=== PATIENT | male | born 1970 | race Caucasian/White ===

== ENCOUNTER 2016-12-25 22:27 | Inpatient (IN) | payer BC ==
--- NOTE | ~2016-12-25 | HP ---
Unit #: [id number] #: [id number] Patient: EWA MCKEON [id number] [address] [place], [place] [address] [id number] MR#: [id number] NAME: EWA MCKEON ROOM: 313 Age: 46 Sex: M Admission Date: 12/25/2016 : 1970 Attending Physician: Arielle Dejesus M.D. Primary Care Physician: No Primary Care Physician HISTORY AND PHYSICAL CHIEF COMPLAINT Nausea, vomiting, diarrhea with abdominal pain and hyponatremia. HISTORY This pleasant 46-year-old male with peptic ulcer disease, daily alcohol use, is admitted for hyponatremia. The patient generally drinks four to five beers on a daily basis. However, for a week he also drank bourbon. Stopped drinking bourbon about five days ago. Three days ago he developed generalized abdominal pain, particularly in the epigastric region associated with nonbloody nausea, vomiting and diarrhea. He felt a little bit disoriented, with very little p.o. intake. He presented to this emergency department this evening, where he was treated with Protonix, IV Reglan and a bolus of saline. Currently is feeling much improved. However, his sodium is 111, down from a sodium of 132 in September. Currently on examination, the patient has mild epigastric tenderness only with a soft abdomen. Acute abdominal series was performed, I do not see free air, I am awaiting for the radiologist to read the films. PAST MEDICAL HISTORY 1. Peptic ulcer disease requiring exploratory lap for perforation. 2. Recurrent ventral hernias. Patient last underwent a laparoscopic repair by Dr. Dickson on 10/12/2016. Lysis of adhesions were also performed. 3. Right hand surgery. ALLERGIES Dilaudid causing anger and shellfish. HOME MEDICATIONS Protonix daily. FAMILY HISTORY Melanoma and hypertension. SOCIAL HISTORY The patient lives with his and daughter. He smokes one pack per day of tobacco. He drinks four to five beers on a daily basis, but denies withdrawal symptoms. REVIEW OF SYSTEMS Notable for nausea, vomiting, diarrhea, abdominal pain, peptic ulcer disease, above mentioned surgeries, tobacco abuse, daily alcohol use. Unit #: [id number] #: [id number] Patient: EWA MCKEON Mild disorientation. All other systems were reviewed and are otherwise negative. PHYSICAL EXAMINATION GENERAL APPEARANCE: Pleasant 46-year-old male, currently in no acute distress. VITAL SIGNS: Temperature 97.8, pulse 93, respirations 22, blood pressure 169/91. O2 saturation is 100% on room air. HEENT: Eyes PERRLA. Extraocular muscles are intact. Pharynx is benign. NECK: Supple without adenopathy or thyromegaly. CHEST: Clear with mild expiratory wheeze. CARDIAC: Normal S1 and S2 without S3, S4 or murmur. ABDOMEN: Bowel sounds are present. (1) scar is noted. The patient has mild tenderness in the epigastric region without rebound or guarding. No hepatosplenomegaly or masses. EXTREMITIES: Without clubbing, cyanosis or edema. Pedal pulses are present. NEUROLOGIC: The patient is awake, alert, oriented. Cranial nerves are intact. Equal strength throughout. DIAGNOSTIC STUDIES LABORATORY: Admission labs - hematocrit is 41.5, normal white count and platelet count. SMA-12 - sodium 111, down from 132 in September. Chloride 80, CO2 19, AST 85, ALT 69, higher than previous values in September. Alk. phos. 95. Lipase is normal. Urinalysis - specific gravity 1.012, 2+ ketones. Acute abdominal series is pending. I do not see a perforation. Radiologist will be reading it shortly. ASSESSMENT 1. Nausea, vomiting, diarrhea with generalized abdominal pain, now improved: Likely, many of the patient's GI symptoms are related to his recent alcohol use, rule out gastroenteritis. 2. Profound hyponatremia, likely multifactorial secondary to hypovolemic hyponatremia and beer potomania. 3. History of peptic ulcer disease requiring exploratory lap and repair for perforated ulcer. 4. Status post multiple ventral hernia repairs, last laparoscopic repair was performed 10/12/[address] Dickson. Lysis of adhesions were also done. 5. Tobacco abuse. 6. Daily alcohol use. PLANS 1. Gentle normal saline and monitor sodium carefully. 2. Obtain urine sodium and TSH. 3. Await acute abdominal series reading by radiologist. 4. Vitamins and benzos. 5. SCDs for DVT prophylaxis. 6. Proton pump inhibitor and p.r.n. Zofran. 7. NicoDerm patch. Unit #: [id number] #: [id number] Patient: EWA MCKEON Dictated by Arielle Dejesus M.D. AML/df TD: 12/26/2016 05:01 JOB #: [id number] CC: Martha Valdovinos Aprn [facility] HISTORY AND PHYSICAL Page 1 of 1 X Arielle Dejesus MD X HISTORY AND PHYSICAL
--- NOTE | ~2016-12-25 | CR2 ---
[facility] A Service of [facility] & [facility] RADIOLOGY TEXT RESULTS PATIENT: EWA MCKEON LOCATION: A 313-01 : [birth year] UNIT #: [id number] AGE: [address]: Blanca Lara MD SEX: M ORDER DR: [id number] [facility] [address]. [place], [place] [address] [id number] MR#: [id number] Acc #: [id number] NAME: EWA MCKEON : 1970 SEX: M STUDY DATE/TIME: 12/25/2016 21:51 UNIT: [id number] PCU ROOM: [facility] STUDY DESCRIPTION: CR Abdomen Acute Series Attending Physician: Arielle Dejesus M.D. Ordering Physician: Easton Ruffin M.D. Primary Care Physician: Primary Care Physician No MEDICAL IMAGING REPORT This report is preliminary unless electronic signature is present EXAM Acute abdomen series, 3 views, 12/25/2016 HISTORY Abdomen pain, nausea, vomiting and diarrhea for 3 days. FINDINGS Three views of the chest and abdomen demonstrate normal bowel gas pattern with no evidence of bowel obstruction or free air. There is a large amount of fecal matter in the colon. There is evidence of prior ventral hernia repair. Single view of the chest is normal. IMPRESSION 1. Normal bowel gas pattern. No evidence of bowel obstruction or free air. 2. Evidence of prior ventral hernia repair. 3. No active pulmonary disease. Dictated by... Jose Roberto Catalan M.D. THIS IS AN ELECTRONICALLY VERIFIED REPORT Jose Roberto Catalan M.D. at 12/26/2016 2:16 PM KRT/psc TD: 12/26/2016 01:33 JOB #: [id number] MEDICAL IMAGING REPORT Page 1 of 1 COPY
--- NOTE | ~2016-12-25 | CO ---
Unit #: [id number] #: [id number] Patient: EWA RODRIGUEZ [id number] [address] [address] [id number] [place] MR#: [id number] NAME: EWA RODRIGUEZ ROOM: 313 Age: 46 Sex: M Admission Date: 12/25/2016 : 1970 Attending Physician: Blanca Lara M.D. Primary Care Physician: No Primary Care Physician CONSULTATION REPORT REASON FOR CONSULTATION Hyponatremia. HISTORY OF PRESENT ILLNESS Thank you very much for asking me to see this patient in consultation. Mr. Ewa Rodriguez is a 45-year-old male who has a history of ETOH abuse. He drinks normally about five to six beers a day over the last week or two. He has also been drinking a lot of bourbon with that, as well as increased beer intake. He started having abdominal discomfort about three days ago and subsequently nausea and vomiting. He presented to the hospital here with a sodium yesterday evening at 8 p.m. of 111. It was repeated at 1:15 a.m. of 115, at 7:40 a.m. this morning at 1:22 and at noon it was 125. I was consulted a couple of hours ago to see this patient for the hyponatremia. The patient states he has never had any problems with his sodium that he knows of. He, again, drinks intermittently for many, many years. He states he has not really eaten a lot in the last few weeks due to his alcohol intake and poor appetite. He denies drinking any non-ethanol based alcohols. He denies any IV drugs or other illegal drugs. PAST MEDICAL HISTORY History of peptic ulcer disease. PAST SURGICAL HISTORY History of hernia repairs in the past. SOCIAL HISTORY The patient is and lives with his . Again, positive alcohol abuse. Positive smoker. FAMILY HISTORY Negative for any sodium problems. ALLERGIES Dilaudid. HOME MEDICATIONS Protonix. CURRENT MEDICATIONS 1. Protonix. 2. Librium. 3. Thiamine. 4. Multivitamin. Unit #: [id number] #: [id number] Patient: EWA RODRIGUEZ 5. He was on normal saline and that was stopped several hours ago. REVIEW OF SYSTEMS As mentioned in history of present illness. He denies any fevers, chills, visual problems, sinus problems, cough. No hemoptysis. No neck pain or neck stiffness. No chest pain, chest heaviness or palpitations. He denies any lower extremity swelling. No recent skin rashes. No seizures or strokes. He does say that he still takes occasional ibuprofen about once a week for hip pain. PHYSICAL EXAMINATION GENERAL: He is alert now and oriented. VITALS: T-max is 98.7, pulse 84-94, blood pressure 135-169/80s to 90s. HEENT: Normocephalic, atraumatic. His pupils are equal, round and reactive to light. Extraocular muscles are intact. Hearing appears to be normal. Mouth is clear. No erythema. No exudate. NECK: Supple. No jugular venous distension. No adenopathy. LUNGS: Clear bilaterally. No wheezes, rhonchi or rales. HEART: He has a regular rate and rhythm without a rub. No S3 or S4. ABDOMEN: Bowel sounds are positive. Nontender this afternoon. No rebound or guarding. No masses are felt. No hepatomegaly noted. EXTREMITIES: He has no significant lower extremity swelling. His pulses are intact, upper and lower extremities. No joint pain or joint swelling. SKIN: No acute rashes. : Deferred. DIAGNOSTIC STUDIES IMAGING: Acute abdominal series was negative. LABORATORY: Previous sodium as mentioned above. His last BMP showed a sodium of 125, potassium 4.3, chloride 92, bicarb 20, BUN 5, creatinine 0.5 and glucose 70. Urinalysis showed specific gravity of 1.012, no RBCs, no WBCs, no protein, but he did have positive ketones in his urine. His TSH was 2.89. His hemoglobin and platelet counts are normal. His albumin was 4.8. He did have increased liver function test mildly. He had a normal amylase and lipase. ASSESSMENT/PLAN 1. Hyponatremia. This is a gentleman who had a low sodium upon presentation. Certainly appears to be either euvolemic versus hypovolemic hyponatremia. He does not appear to have any evidence of ascites, congestive heart failure or liver failure at this point in time. Certainly, I think he probably has a combination of volume depletion with his nausea, vomiting and diarrhea upon presentation. He also probably has some component of decreased (1) intake. His BUN and creatinine are fairly low, although his albumin is actually not nearly as low as I would expect, although he could continue to worsen with hydration. TSH is normal. Will check a cortisol level in the morning. Will check urine osmolality. I would like to check STAT BMPs every four hours. His sodium in serum has improved a little faster than what I would like. I am going to go ahead and started him on D5W for now. Check a STAT BMP now and again every four hours and adjust the IV fluids depending on that level. 2. ETOH abuse. Will check a magnesium and phosphorus as well. Certainly agree with current treatment for possible withdrawal. 3. Acidosis. I do not have a current ABG, but I would assume the patient has a metabolic acidosis with anion gap of only 13, which is slightly elevated, but probably related to starvation ketoacidosis. Unit #: [id number] #: [id number] Patient: EWA RODRIGUEZ His urine was positive for ketones. Certainly, if his acidosis does not improve then we can consider further workup of this. I doubt if he has any other alcohol ingestion as the etiology of his acidosis. Dictated byJenifer Chino M.D. ERNST/ginna TD: 12/27/2016 09:37 JOB #: [id number] CONSULTATION REPORT Page 1 of 1 X Kriss Chino MD X CONSULTATION REPORT
[2016-12-25 20:08] LABS: BASOPHIL# 0.1 X10e3 (0-0.3); BASOPHIL% 0.8 % (0-2.5); EOSINOPHIL# 0.6 X10e3 (0-0.7); EOSINOPHIL% 7.9 % (0.0-7.0); HEMATOCRIT 41.5 % (38.0-50.0); HEMOGLOBIN 14.4 gm/dL (13.0-16.0); LYMPHOCYTE# 2.6 X10e3 (1.0-3.5); LYMPHOCYTE% 36.4 % (17.0-45.0); MEAN CELL VOLUME 87.2 FL (83-96); MEAN CORPUSCULAR HEMOGLOBIN 30.2 PG (28-34); MEAN CORPUSCULAR HGB CONC 34.6 g/dL (30-36); MEAN PLATELET VOLUME 7.5 FL (6.5-11.5); MONOCYTE# 0.4 X10e3 (0-1.0); MONOCYTE% 6.2 % (3.0-12.0); NEUTROPHIL# 3.5 X10e3 (1.5-7.1); NEUTROPHIL% 48.7 % (40-75); PLATELET COUNT 228 X10e3 (140-420); RED BLOOD COUNT 4.76 X10e (3.90-5.60); RED CELL DISTRIBUTION WIDTH 13.3 % (11.0-15.5); WHITE BLOOD COUNT 7.2 X10e3 (4.0-10.5)
[2016-12-25 20:11] LABS: DIFF IND NO
[2016-12-25 20:31] LABS: ALBUMIN SERUM 4.8 g/dL (3.5-5.0); BILIRUBIN, DIRECT 0.2 mg/dL (0.0-0.2); BILIRUBIN,INDIRECT 0.7 mg/dL (0.0-0.9); BILIRUBIN,TOTAL 0.9 mg/dL (0.2-2.0); BUN/CREATININE RATIO 16.66; CALCIUM SERUM 8.4 mg/dL (8.4-10.2); CREATININE SERUM 0.3 mg/dL (0.6-1.4); GLOM FILT RATE Estimated 159.3 mL/min (>60); POTASSIUM 3.5 mmol/L (3.5-5.1); PROTEIN TOTAL SERUM 7.1 g/dL (6.0-8.3)
[2016-12-25 21:05] LABS: URINE SOURCE CLEAN CATCH
[2016-12-25 21:12] LABS: URINE APPEARANCE CLEAR; URINE BILIRUBIN NEG (NEG); URINE BLOOD NEG (NEG); URINE COLOR YELLOW; URINE GLUCOSE NEG (NEG); URINE KETONE 2+ (NEG); URINE LEUKOCYTE ESTERASE NEG (NEG); URINE NITRATE NEG (NEG); URINE PROTEIN NEG (NEG); URINE SPECIFIC GRAVITY 1.012 (1.003-1.035)
[2016-12-25 21:19] LABS: CULTURE INDICATED? NO
[2016-12-25 21:37] LABS: CALCIUM SERUM 8.4 mg/dL (8.4-10.2); CARBON DIOXIDE 19 mmol/L (22-31); CHLORIDE 80 mmol/L (100-111); CREATININE SERUM 0.4 mg/dL (0.6-1.4); GLOM FILT RATE Estimated 141.5 mL/min (>60); GLUCOSE FASTING 100 mg/dL (70-110); POTASSIUM 3.7 mmol/L (3.5-5.1)
[2016-12-25 21:39] LABS: BLOOD UREA NITROGEN <5 mg/dL (9-23); SODIUM 111 mmol/L (135-145)
[~2016-12-25 22:27] MED LIST: LORTAB 10-3251 EACH PO; NICOTINE PATCH1 EACH TD; PROTONIX PO
[2016-12-26 01:35] LABS: BASOPHIL% 0.6 % (0-2.5); EOSINOPHIL# 0.5 X10e3 (0-0.7); EOSINOPHIL% 7.5 % (0.0-7.0); HEMATOCRIT 40.7 % (38.0-50.0); HEMOGLOBIN 13.9 gm/dL (13.0-16.0); LYMPHOCYTE# 2.4 X10e3 (1.0-3.5); LYMPHOCYTE% 36.8 % (17.0-45.0); MEAN CELL VOLUME 87.8 FL (83-96); MEAN CORPUSCULAR HGB CONC 34.2 g/dL (30-36); MEAN PLATELET VOLUME 7.8 FL (6.5-11.5); MONOCYTE# 0.5 X10e3 (0-1.0); MONOCYTE% 7.4 % (3.0-12.0); NEUTROPHIL# 3.1 X10e3 (1.5-7.1); NEUTROPHIL% 47.7 % (40-75); PLATELET COUNT 217 X10e3 (140-420); RED BLOOD COUNT 4.64 X10e (3.90-5.60); RED CELL DISTRIBUTION WIDTH 13.1 % (11.0-15.5); WHITE BLOOD COUNT 6.4 X10e3 (4.0-10.5)
[2016-12-26 01:36] LABS: DIFF IND NO
[2016-12-26 02:04] LABS: ALBUMIN SERUM 4.4 g/dL (3.5-5.0); ALKALINE PHOSPHATASE 86 U/L (32-92); ALT (SGPT) 73 U/L (10-40); AST (SGOT) 97 U/L (10-42); BILIRUBIN,TOTAL 1.3 mg/dL (0.2-2.0); CALCIUM SERUM 8.1 mg/dL (8.4-10.2); CARBON DIOXIDE 20 mmol/L (22-31); CHLORIDE 85 mmol/L (100-111); CREATININE SERUM 0.4 mg/dL (0.6-1.4); GLOM FILT RATE Estimated 141.5 mL/min (>60); GLUCOSE FASTING 81 mg/dL (70-110); POTASSIUM 4.1 mmol/L (3.5-5.1); PROTEIN TOTAL SERUM 6.5 g/dL (6.0-8.3)
[2016-12-26 02:05] LABS: BLOOD UREA NITROGEN <5 mg/dL (9-23)
[2016-12-26 02:06] LABS: SODIUM 115 mmol/L (135-145)
[2016-12-26 02:25] LABS: THYROID STIMULATING HORMONE 2.89 uIU/ml (0.34-5.60)
[2016-12-26 02:32] LABS: FREE THYROXIN (T4) 1.08 ng/dL (0.58-1.64)
[2016-12-26 08:19] LABS: CALCIUM SERUM 8.7 mg/dL (8.4-10.2); CARBON DIOXIDE 21 mmol/L (22-31); CHLORIDE 90 mmol/L (100-111); CREATININE SERUM 0.7 mg/dL (0.6-1.4); GLOM FILT RATE Estimated 112.4 mL/min (>60); GLUCOSE FASTING 68 mg/dL (70-110); POTASSIUM 4.9 mmol/L (3.5-5.1)
[2016-12-26 08:22] LABS: BLOOD UREA NITROGEN <5 mg/dL (9-23); BUN/CREATININE RATIO 7.14; SODIUM 122 mmol/L (135-145)
[2016-12-26 13:01] LABS: CALCIUM SERUM 8.8 mg/dL (8.4-10.2); CREATININE SERUM 0.5 mg/dL (0.6-1.4); GLOM FILT RATE Estimated 129.1 mL/min (>60); POTASSIUM 4.3 mmol/L (3.5-5.1)
[2016-12-26 17:02] LABS: CALCIUM SERUM 8.9 mg/dL (8.4-10.2); CREATININE SERUM 0.6 mg/dL (0.6-1.4); GLOM FILT RATE Estimated 119.8 mL/min (>60); POTASSIUM 4.1 mmol/L (3.5-5.1)
[2016-12-26 17:39] LABS: MAGNESIUM 1.7 mg/dL (1.6-3.0)
[2016-12-26 21:56] LABS: CALCIUM SERUM 8.8 mg/dL (8.4-10.2); CREATININE SERUM 0.5 mg/dL (0.6-1.4); GLOM FILT RATE Estimated 129.1 mL/min (>60); POTASSIUM 3.7 mmol/L (3.5-5.1)
[2016-12-27 03:02] LABS: BUN/CREATININE RATIO 17.5; CALCIUM SERUM 8.9 mg/dL (8.4-10.2); CREATININE SERUM 0.4 mg/dL (0.6-1.4); GLOM FILT RATE Estimated 141.5 mL/min (>60); POTASSIUM 3.8 mmol/L (3.5-5.1)
[2016-12-27 06:28] LABS: HEMATOCRIT 43.2 % (38.0-50.0); HEMOGLOBIN 14.7 gm/dL (13.0-16.0); MEAN CORPUSCULAR HEMOGLOBIN 29.9 PG (28-34); MEAN PLATELET VOLUME 7.7 FL (6.5-11.5); RED BLOOD COUNT 4.91 X10e (3.90-5.60); RED CELL DISTRIBUTION WIDTH 13.3 % (11.0-15.5); WHITE BLOOD COUNT 6.1 X10e3 (4.0-10.5)
[2016-12-27 07:29] LABS: ALBUMIN SERUM 4.1 g/dL (3.5-5.0); BILIRUBIN,TOTAL 0.7 mg/dL (0.2-2.0); CALCIUM SERUM 8.9 mg/dL (8.4-10.2); CREATININE SERUM 0.5 mg/dL (0.6-1.4); GLOM FILT RATE Estimated 129.1 mL/min (>60); MAGNESIUM 1.6 mg/dL (1.6-3.0); PHOSPHOROUS 3.1 mg/dL (2.5-4.6); POTASSIUM 3.9 mmol/L (3.5-5.1); PROTEIN TOTAL SERUM 6.3 g/dL (6.0-8.3)
[2016-12-27 10:14] LABS: CALCIUM SERUM 9.1 mg/dL (8.4-10.2); CREATININE SERUM 0.5 mg/dL (0.6-1.4); GLOM FILT RATE Estimated 129.1 mL/min (>60); POTASSIUM 3.9 mmol/L (3.5-5.1)
== END 2016-12-27 14:14 | disposition left against medical advice (07) | DRG 641 ==
LOC: CED 22:27 → CEDOF 22:50 → C3A PCU 12-26 00:22
PROVIDERS: Emergency Medicine; Internal Medicine; Internal Medicine Nephrology
DX: E87.1 Hypo-osmolality and hyponatremia (principal); E86.1 Hypovolemia; F10.231 Alcohol dependence with withdrawal delirium; E87.2 Acidosis; Z87.11 Personal history of peptic ulcer disease; Z91.013 Allergy to seafood; F17.210 Nicotine dependence, cigarettes, uncomplicated; R74.0 Nonspecific elevation of levels of transaminase and lactic acid dehydrogenase [LDH]
CPT/HCPCS: 36415; 74022; 80048; 80053; 80076; 81003; 82533; 83690; 83735; 83935; 84100; 84300; 84439; 84443; 85025; 85027; 96361; 96374; 96375; 99285; C9113; J2765; J3411; J3475